=== PATIENT | female | born 1945 | race Caucasian/White ===

== ENCOUNTER 2018-01-13 08:01 | Inpatient (IN) | payer OTHER ==
[2018-01-13 08:54] LABS: HEMATOCRIT 40.4 % (36.0-46.0); HEMOGLOBIN 13.7 G/DL (11.9-15.5); MCH 32.2 PG (29.0-34.0); MCHC 33.9 G/DL (30.0-36.0); MCV 94.8 FL (83-99); PLATELET COUNT 184 K/uL (156-360); RBC DIS.WIDTH-CV 13.7 % (11.8-14.6); RBC DIS.WIDTH-SD 48.4 % (39-53); RED BLOOD COUNT 4.26 M/uL (3.80-5.20); WHITE BLOOD COUNT 15.5 K/uL (4.1-10.2)
[2018-01-13 09:47] LABS: CHLORIDE 109 mEq/L (99-109); POTASSIUM 3.9 mEq/L (3.7-5.4); SODIUM 142 mEq/L (136-147)
[2018-01-13 09:49] LABS: GLUCOSE 99 mg/dL (70-99)
[2018-01-13 09:53] LABS: CREATININE 0.7 mg/dL (0.6-1.3); GFR ESTIMATE (CALCULATED) > 59 mL/min/; UREA NITROGEN (BUN) 25 mg/dL (9-23)
[2018-01-13] MEDS ORDERED: DESYREL100 MG PO (10:28)
[2018-01-13] MEDS ORDERED: ROBAXIN500 MG PO (10:29)
[2018-01-13] MEDS ORDERED: ALEVE220 MG PO (10:30)
[2018-01-13] MEDS ORDERED: PLAVIX75 MG PO (10:30)
[2018-01-13] MEDS ORDERED: VENTOLIN HFA18 GM IH (10:31)
[2018-01-13] MEDS ORDERED: SPIRIVA RESPIMAT4 GM IH (10:31)
[2018-01-13 13:06] LABS: INTER. NORMALIZED RATIO 1.2
[2018-01-13 13:09] LABS: PTT 28.1 SEC (25-37)
[2018-01-13 17:29] VITALS: BP 123/58
[2018-01-14] VITALS (17 sets, daily range): BP systolic 81–130; BP diastolic 51–64
[2018-01-14 07:17] LABS: CHLORIDE 112 MEQ/L (99-109); CREATININE 0.6 MG/DL (0.6-1.3); GFR ESTIMATE (CALCULATED) > 59 mL/min/; GLUCOSE 139 mg/dL (70-99); POTASSIUM 4.5 MEQ/L (3.7-5.4); SODIUM 142 MEQ/L (136-147); UREA NITROGEN (BUN) 21 mg/dL (9-23)
[2018-01-14 07:35] LABS: HEMATOCRIT 22.5 % (36.0-46.0); HEMOGLOBIN 7.4 G/DL (11.9-15.5); MCH 31.6 PG (29.0-34.0); MCHC 32.9 G/DL (30.0-36.0); MCV 96.2 FL (83-99); PLATELET COUNT 151 K/uL (156-360); RBC DIS.WIDTH-CV 13.8 % (11.8-14.6); RBC DIS.WIDTH-SD 48.9 % (39-53); RED BLOOD COUNT 2.34 M/uL (3.80-5.20); WHITE BLOOD COUNT 15.8 K/uL (4.1-10.2)
[2018-01-14 08:38] LABS: HEMATOCRIT 21.6 % (36.0-46.0); HEMOGLOBIN 7.2 G/DL (11.9-15.5); MCV 96.9 FL (83-99)
[2018-01-14 11:45] LABS: TROP-I INTERPRETATION NEGATIVE; TROPONIN-I 0.01 ng/mL (0.0-0.30)
[2018-01-14] MEDS ORDERED: LYRICA75 MG PO (22:46)
[2018-01-15] VITALS (10 sets, daily range): BP systolic 76–127; BP diastolic 32–58
[2018-01-15 06:16] LABS: HEMATOCRIT 23.1 % (36.0-46.0); HEMOGLOBIN 7.7 G/DL (11.9-15.5); MCH 30.7 PG (29.0-34.0); MCHC 33.3 G/DL (30.0-36.0); PLATELET COUNT 112 K/uL (156-360); RBC DIS.WIDTH-CV 15.7 % (11.8-14.6); RBC DIS.WIDTH-SD 52.7 % (39-53); RED BLOOD COUNT 2.51 M/uL (3.80-5.20); WHITE BLOOD COUNT 8.2 K/uL (4.1-10.2)
[2018-01-15 07:37] LABS: CHLORIDE 112 MEQ/L (99-109); CREATININE 0.6 MG/DL (0.6-1.3); GFR ESTIMATE (CALCULATED) > 59 mL/min/; POTASSIUM 3.7 MEQ/L (3.7-5.4); SODIUM 143 MEQ/L (136-147); UREA NITROGEN (BUN) 15 mg/dL (9-23)
[2018-01-15 07:38] LABS: GLUCOSE 97 mg/dL (70-99)
[2018-01-15 12:28] LABS: HEMATOCRIT 23.2 % (36.0-46.0); HEMOGLOBIN 7.7 G/DL (11.9-15.5); MCH 30.9 PG (29.0-34.0); MCHC 33.2 G/DL (30.0-36.0); MCV 93.2 FL (83-99); PLATELET COUNT 118 K/uL (156-360); RBC DIS.WIDTH-CV 15.9 % (11.8-14.6); RBC DIS.WIDTH-SD 54.1 % (39-53); RED BLOOD COUNT 2.49 M/uL (3.80-5.20); WHITE BLOOD COUNT 7.8 K/uL (4.1-10.2)
[2018-01-15 19:14] LABS: HEMATOCRIT 23.7 % (36.0-46.0); HEMOGLOBIN 7.9 G/DL (11.9-15.5); MCV 93.7 FL (83-99)
[2018-01-16] VITALS (15 sets, daily range): BP systolic 90–135; BP diastolic 50–73
[2018-01-16 06:38] LABS: HEMATOCRIT 21.8 % (36.0-46.0); HEMOGLOBIN 7.2 G/DL (11.9-15.5); MCV 93.2 FL (83-99)
[2018-01-17 04:09] VITALS: BP 131/60
[2018-01-17 07:41] VITALS: BP 101/52
[2018-01-17 09:15] LABS: HEMATOCRIT 31.7 % (36.0-46.0); MCH 30.1 PG (29.0-34.0); MCHC 33.4 G/DL (30.0-36.0); MCV 90.1 FL (83-99); RBC DIS.WIDTH-CV 17.1 % (11.8-14.6); WHITE BLOOD COUNT 8.9 K/uL (4.1-10.2)
[2018-01-17 09:18] LABS: HEMOGLOBIN 10.6 G/DL (11.9-15.5); PLATELET COUNT 158 K/uL (156-360); RED BLOOD COUNT 3.52 M/uL (3.80-5.20)
[2018-01-17 11:41] VITALS: BP 100/42
[2018-01-17 16:30] VITALS: BP 125/66
[2018-01-17 23:28] VITALS: BP 129/69
[2018-01-18 07:04] LABS: HEMATOCRIT 33.9 % (36.0-46.0); MCHC 32.4 G/DL (30.0-36.0); MCV 92.4 FL (83-99); PLATELET COUNT 196 K/uL (156-360); RBC DIS.WIDTH-CV 16.5 % (11.8-14.6); RBC DIS.WIDTH-SD 54.7 % (39-53); RED BLOOD COUNT 3.67 M/uL (3.80-5.20); WHITE BLOOD COUNT 9.1 K/uL (4.1-10.2)
[2018-01-18 07:59] VITALS: BP 112/55
[2018-01-18] MEDS ORDERED: HYDROCODON-ACE1 EAC9 PO (09:39)
[2018-01-18] MEDS ORDERED: NICOTINE PATCH1 EAC2 TD (09:39)
[2018-01-18 11:54] VITALS: BP 112/55
== END 2018-01-18 13:47 | DRG 481 ==
LOC: TRA 08:01 → EDOF 12:09 → 3EAST 12:09 → ENRESERV 12:10 → 3EAST 16:57
PROVIDERS: Emergency Medicine; Hospitalist; Internal Medicine; Internal Medicine Cardiovascular Disease; Orthopaedic Surgery; Physician Assistant
PROC: 0QH634Z Insertion of Internal Fixation Device into Right Upper Femur, Percutaneous Approach (ICD-10-PCS; principal; 2018-01-13)
DX: S72.141A Displaced intertrochanteric fracture of right femur, initial encounter for closed fracture (principal); D62 Acute posthemorrhagic anemia; S01.81XA Laceration without foreign body of other part of head, initial encounter; J44.9 Chronic obstructive pulmonary disease, unspecified; F17.210 Nicotine dependence, cigarettes, uncomplicated; I25.10 Atherosclerotic heart disease of native coronary artery without angina pectoris; I73.9 Peripheral vascular disease, unspecified; G89.4 Chronic pain syndrome; I10 Essential (primary) hypertension; M79.7 Fibromyalgia; Z68.33 Body mass index [BMI] 33.0-33.9, adult; Z99.81 Dependence on supplemental oxygen; Z79.02 Long term (current) use of antithrombotics/antiplatelets; Z95.5 Presence of coronary angioplasty implant and graft; M81.0 Age-related osteoporosis without current pathological fracture; Z96.642 Presence of left artificial hip joint; W18.39XA Other fall on same level, initial encounter; W01.0XXA Fall on same level from slipping, tripping and stumbling without subsequent striking against object, initial encounter; Y93.89 Activity, other specified; Y92.89 Other specified places as the place of occurrence of the external cause
CPT/HCPCS: 70450; 71045; 72100; 72125; 73502; 76000; 80048; 84484; 85014; 85018; 85027; 85610; 85730; 86850; 86900; 86901; 86920; 93005; 94640; 94799; 99281; 99285; C1713; J0131; J0690; J1170; J1644; J2250; J2270; J2405; J2710; J3010; J7030; J7643; P9016

== ENCOUNTER 2018-01-18 11:14 | Inpatient (IN) | payer OTHER ==
[~2018-01-18] VITALS: Ht 167.6 cm; Wt 65.3 kg
[~2018-01-18 11:14] MED LIST: ALEVE220 MG PO; DESYREL100 MG PO; HYDROCODON-ACE1 EAC9 PO; LYRICA75 MG PO; NICOTINE PATCH1 EAC2 TD; PLAVIX75 MG PO; ROBAXIN500 MG PO; SPIRIVA RESPIMAT4 GM IH; VENTOLIN HFA18 GM IH
[2018-01-18 14:16] VITALS: BP 126/57
[2018-01-19 05:40] VITALS: BP 100/54
[2018-01-19 06:48] LABS: HEMOGLOBIN 10.2 G/DL (11.9-15.5); MCH 30.4 PG (29.0-34.0); MCHC 32.9 G/DL (30.0-36.0); MCV 92.3 FL (83-99); PLATELET COUNT 237 K/uL (156-360); RBC DIS.WIDTH-CV 16.1 % (11.8-14.6); RED BLOOD COUNT 3.36 M/uL (3.80-5.20); WHITE BLOOD COUNT 8.9 K/uL (4.1-10.2)
[2018-01-19 07:10] LABS: ALBUMIN 3.2 G/DL (3.2-4.8); ALKALINE PHOSPHATASE 23 IU/L (3-129); ALT (GPT) 10 IU/L (3-49); AST (GOT) 18 IU/L (2-34); CHLORIDE 101 MEQ/L (99-109); CREATININE 0.5 MG/DL (0.6-1.3); GFR ESTIMATE (CALCULATED) > 59 mL/min/; GLUCOSE 100 mg/dL (70-99); POTASSIUM 4.4 MEQ/L (3.7-5.4); SODIUM 141 MEQ/L (136-147); UREA NITROGEN (BUN) 21 mg/dL (9-23)
[2018-01-19 16:00] VITALS: BP 127/60
[2018-01-20 04:57] LABS: APPEARANCE CLEAR ((CLEAR)); BILIRUBIN NEGATIVE; BLOOD NEGATIVE; COLOR YELLOW ((YELLOW)); GLUCOSE (STRIP) NEGATIVE; KETONES NEGATIVE; LEUKOCYTES NEGATIVE; NITRITE NEGATIVE; PROTEIN (STRIP) NEGATIVE; SPECIFIC GRAVITY 1.011 (1.000-1.030); UROBILINOGEN 0.2 MG/DL (0.2-1.0)
[2018-01-20 05:50] VITALS: BP 100/66
[2018-01-20 06:14] LABS: BASOPHIL (%) 0.2 % (0-1); EOSINOPHIL (%) 2.4 % (0-5); EOSINOPHIL COUNT 0.2 K/uL (0-0.3); HEMATOCRIT 33.7 % (36.0-46.0); HEMOGLOBIN 10.8 G/DL (11.9-15.5); IMMATURE GRANULOCYTE (%) 1.1 % (0.0-0.7); LYMPHOCYTE (%) 24.1 % (15-42); MCH 30.3 PG (29.0-34.0); MCV 94.7 FL (83-99); MONOCYTE (%) 9.1 % (3-12); MONOCYTE COUNT 0.8 K/uL (0-0.8); NEUTROPHIL (%) 63.1 % (45-76); NEUTROPHIL COUNT 5.3 K/uL (1.8-6.4); PLATELET COUNT 268 K/uL (156-360); RBC DIS.WIDTH-CV 16.2 % (11.8-14.6); RBC DIS.WIDTH-SD 54.6 % (39-53); RED BLOOD COUNT 3.56 M/uL (3.80-5.20); WHITE BLOOD COUNT 8.4 K/uL (4.1-10.2)
[2018-01-20 06:40] LABS: CHLORIDE 101 MEQ/L (99-109); CREATININE 0.6 MG/DL (0.6-1.3); GFR ESTIMATE (CALCULATED) > 59 mL/min/; GLUCOSE 118 mg/dL (70-99); POTASSIUM 4.5 MEQ/L (3.7-5.4); SODIUM 141 MEQ/L (136-147); UREA NITROGEN (BUN) 22 mg/dL (9-23)
[2018-01-20 16:02] VITALS: BP 104/50
[2018-01-21 06:00] VITALS: BP 82/47
[2018-01-21 06:08] VITALS: BP 82/40
[2018-01-21 10:08] VITALS: BP 86/44
[2018-01-21 14:12] LABS: HEMATOCRIT 33.7 % (36.0-46.0); HEMOGLOBIN 11.2 G/DL (11.9-15.5); MCH 31.3 PG (29.0-34.0); MCHC 33.2 G/DL (30.0-36.0); MCV 94.1 FL (83-99); PLATELET COUNT 312 K/uL (156-360); RBC DIS.WIDTH-CV 16.1 % (11.8-14.6); RBC DIS.WIDTH-SD 55.4 % (39-53); RED BLOOD COUNT 3.58 M/uL (3.80-5.20); WHITE BLOOD COUNT 9.1 K/uL (4.1-10.2)
[2018-01-21 14:21] LABS: CHLORIDE 101 mEq/L (99-109); POTASSIUM 4.4 mEq/L (3.7-5.4); SODIUM 138 mEq/L (136-147)
[2018-01-21 14:22] LABS: GLUCOSE 98 mg/dL (70-99)
[2018-01-21 14:26] LABS: CREATININE 0.7 mg/dL (0.6-1.3); GFR ESTIMATE (CALCULATED) > 59 mL/min/
[2018-01-21 14:27] LABS: UREA NITROGEN (BUN) 23 mg/dL (9-23)
[2018-01-21 15:06] LABS: BASOPHIL (%) 0.5 % (0-1); EOSINOPHIL (%) 1.8 % (0-5); EOSINOPHIL COUNT 0.2 K/uL (0-0.3); IMMATURE GRANULOCYTE (%) 1.2 % (0.0-0.7); LYMPHOCYTE (%) 15.3 % (15-42); LYMPHOCYTE COUNT 1.4 K/uL (1.0-2.8); MONOCYTE (%) 10.1 % (3-12); MONOCYTE COUNT 0.9 K/uL (0-0.8); NEUTROPHIL (%) 71.1 % (45-76); NEUTROPHIL COUNT 6.3 K/uL (1.8-6.4)
[2018-01-21 15:08] VITALS: BP 114/68
[2018-01-22 05:44] LABS: BASOPHIL (%) 0.4 % (0-1); EOSINOPHIL (%) 2.8 % (0-5); EOSINOPHIL COUNT 0.2 K/uL (0-0.3); IMMATURE GRANULOCYTE (%) 1.1 % (0.0-0.7); LYMPHOCYTE (%) 26.1 % (15-42); MCH 31.1 PG (29.0-34.0); MCHC 32.3 G/DL (30.0-36.0); MCV 96.3 FL (83-99); MONOCYTE (%) 10.5 % (3-12); MONOCYTE COUNT 0.8 K/uL (0-0.8); NEUTROPHIL (%) 59.1 % (45-76); NEUTROPHIL COUNT 4.5 K/uL (1.8-6.4); PLATELET COUNT 292 K/uL (156-360); RBC DIS.WIDTH-CV 16.3 % (11.8-14.6); RBC DIS.WIDTH-SD 56.4 % (39-53); RED BLOOD COUNT 3.22 M/uL (3.80-5.20); WHITE BLOOD COUNT 7.6 K/uL (4.1-10.2)
[2018-01-22 05:50] VITALS: BP 103/51
[2018-01-22 06:18] LABS: CHLORIDE 107 MEQ/L (99-109); CREATININE 0.5 MG/DL (0.6-1.3); GFR ESTIMATE (CALCULATED) > 59 mL/min/; GLUCOSE 92 mg/dL (70-99); SODIUM 142 MEQ/L (136-147); UREA NITROGEN (BUN) 18 mg/dL (9-23)
[2018-01-22 06:19] LABS: POTASSIUM ND MEQ/L (3.7-5.4)
[2018-01-22 07:15] LABS: POTASSIUM 4.1 MEQ/L (3.7-5.4)
[2018-01-22 13:26] VITALS: BP 114/58
[2018-01-22 15:06] VITALS: BP 104/62
[2018-01-23 06:18] VITALS: BP 98/55
[2018-01-23 15:47] VITALS: BP 121/58
[2018-01-24 04:51] VITALS: BP 126/70
[2018-01-24 20:58] VITALS: BP 117/55
[2018-01-25 04:53] VITALS: BP 105/53
[2018-01-25 16:25] VITALS: BP 119/58
[2018-01-26 05:03] VITALS: BP 113/57
[2018-01-26 05:34] LABS: BASOPHIL (%) 0.4 % (0-1); EOSINOPHIL (%) 2.8 % (0-5); EOSINOPHIL COUNT 0.2 K/uL (0-0.3); HEMATOCRIT 35.1 % (36.0-46.0); HEMOGLOBIN 11.3 G/DL (11.9-15.5); IMMATURE GRANULOCYTE (%) 0.5 % (0.0-0.7); LYMPHOCYTE (%) 24.6 % (15-42); MCH 30.8 PG (29.0-34.0); MCHC 32.2 G/DL (30.0-36.0); MCV 95.6 FL (83-99); MONOCYTE (%) 7.4 % (3-12); MONOCYTE COUNT 0.6 K/uL (0-0.8); NEUTROPHIL (%) 64.3 % (45-76); NEUTROPHIL COUNT 5.3 K/uL (1.8-6.4); RBC DIS.WIDTH-CV 16.6 % (11.8-14.6); RBC DIS.WIDTH-SD 58.4 % (39-53); RED BLOOD COUNT 3.67 M/uL (3.80-5.20); WHITE BLOOD COUNT 8.2 K/uL (4.1-10.2)
[2018-01-26 05:42] LABS: PLATELET COUNT 388 K/uL (156-360)
[2018-01-26 06:10] LABS: CHLORIDE 104 MEQ/L (99-109); CREATININE 0.5 MG/DL (0.6-1.3); GFR ESTIMATE (CALCULATED) > 59 mL/min/; GLUCOSE 97 mg/dL (70-99); POTASSIUM 4.2 MEQ/L (3.7-5.4); SODIUM 140 MEQ/L (136-147); UREA NITROGEN (BUN) 16 mg/dL (9-23)
[2018-01-26 15:15] VITALS: BP 122/59
[2018-01-26] MEDS ORDERED: SENNA PLUS TAB1 EACH PO (23:14)
[2018-01-26] MEDS ORDERED: MOXIFLOXACIN3 ML BOTH EYES (23:14)
[2018-01-26] MEDS ORDERED: OXYCODONE-APAP1 EACH PO (23:14)
[2018-01-26] MEDS ORDERED: Salonpas 4% Patch TD (23:14)
[2018-01-26] MEDS ORDERED: FAMOTIDINE20 MG PO (23:14)
[2018-01-26] MEDS ORDERED: NICOTINE PATCH1 EAC2 TD (23:14)
[2018-01-26] MEDS ORDERED: POLYETHYLENE GL17 GM PO (23:14)
[2018-01-26] MEDS ORDERED: LOVENOX40 MG/0.4 SC (23:14)
[2018-01-27 06:21] VITALS: BP 117/55
[2018-01-27] MEDS ORDERED: ASPIR-LOW81 MG PO (11:32)
== END 2018-01-27 14:03 | DRG 560 ==
LOC: 3WEST 11:14 → ENPENDDIS 01-27 → 3WEST 01-27 14:03
PROVIDERS: Family Medicine; Family Medicine Sports Medicine; Physical Medicine & Rehabilitation Pain Medicine
PROC: F07M0ZZ Range of Motion and Joint Mobility Treatment of Musculoskeletal System - Whole Body (ICD-10-PCS; principal; 2018-01-18)
DX: S72.141D Displaced intertrochanteric fracture of right femur, subsequent encounter for closed fracture with routine healing (principal); D62 Acute posthemorrhagic anemia; W18.30XD Fall on same level, unspecified, subsequent encounter; E83.51 Hypocalcemia; G89.4 Chronic pain syndrome; M79.7 Fibromyalgia; J44.9 Chronic obstructive pulmonary disease, unspecified; Z99.81 Dependence on supplemental oxygen; Z96.642 Presence of left artificial hip joint; Z98.1 Arthrodesis status; S01.81XD Laceration without foreign body of other part of head, subsequent encounter; M81.0 Age-related osteoporosis without current pathological fracture; R53.1 Weakness; F17.210 Nicotine dependence, cigarettes, uncomplicated; K59.00 Constipation, unspecified; I25.10 Atherosclerotic heart disease of native coronary artery without angina pectoris; I10 Essential (primary) hypertension; M19.011 Primary osteoarthritis, right shoulder; Z95.5 Presence of coronary angioplasty implant and graft
CPT/HCPCS: 73030; 73502; 73564; 80048; 80053; 81003; 84999; 85025; 85027; 87086; 93971; 94640; 94760; 94799; 97110 GO; 97530 GP; 99201 TC; J1644; J1650; J7030